=== PATIENT | female | born 1955 | race Caucasian/White ===

== ENCOUNTER 2017-01-18 15:49 | Emergency (ER) | payer SELFPAY ==
[2017-01-18 16:04] VITALS: BP 125/71
--- NOTE | 2017-01-18 16:23 | UC ---
Hand/Wrist HPI - HPI Summary HPI Summary: swollen right wrist x 1 week + injury to her right wrist at work one week ago. + swelling, not much pain , no weakness - History Of Current Complaint Chief Complaint: UCUpperExtremity Stated Complaint: RIGHT WRIST INJURY Time Seen by Provider: 01/18/17 16:09 Hx Obtained From: Patient Onset/Duration: Sudden Onset, Lasting Days - 7, Still Present Severity Initially: Moderate Severity Currently: Moderate Character Of Pain: Unable To Describe Aggravating Factor(s): Flexion Alleviating: Nothing Associated Signs And Symptoms: Positive: Swelling. Negative: Redness, Bruising , Fever, Weakness, Numbness/Tingling - Allergies/Home Medications Allergies/Adverse Reactions: Allergies Allergy/AdvReac Type Severity Reaction Status Date / Time No Known Allergies Allergy Verified 01/18/17 16:03 Home Medications: Home Medications NK [No Home Medications Reported] 01/18/17 [History Confirmed 01/18/17] PMH/Surg Hx/FS Hx/Imm Hx Previously Healthy: Yes - Surgical History Surgical History: Yes Surgery Procedure, Year, and Place: - Family History Known Family History: Negative: Diabetes - Social History Alcohol Use: Occasionally Substance Use Type: None Smoking Status (MU): Never Smoked Tobacco Review of Systems Constitutional: Negative Skin: Negative Eyes: Negative ENT: Negative Respiratory: Negative Cardiovascular: Negative All Other Systems Reviewed And Are Negative: Yes Physical Exam Triage Information Reviewed: Yes Appearance: Well-Appearing, No Pain Distress, Well-Nourished Vital Signs: Initial Vital Signs Temp 98 F 01/18/17 15:58 Pulse 74 01/18/17 15:58 Resp 18 01/18/17 15:58 BP 125/71 01/18/17 15:58 Pulse Ox 97 01/18/17 15:58 Vital Signs Reviewed: Yes Eye Exam: Normal Eyes: Positive: Conjunctiva Clear ENT: Positive: Normal ENT inspection, Hearing grossly normal, Pharynx normal Neck: Positive: Supple, Nontender, No Lymphadenopathy Respiratory: Positive: Chest non-tender, Lungs clear, Normal breath sounds Cardiovascular: Positive: RRR, No Murmur, Pulses Normal Musculoskeletal: Positive: Other: - right wirst + ganglion cyst dorsal wrist, no tenderness, good ROM on flexion and extension normal strength Skin: Positive: Other - no head lice noted Hand/Wrist Course/Dx - Differential Dx/Diagnosis Provider Diagnoses: ganglion cyst right wrist Discharge - Discharge Plan Condition: Stable Disposition: HOME Patient Education Materials: Ganglion Cysts (ED) Referrals: CARTER De La Rosa [Primary Care Provider] - Yasmin Casillas MD [Medical Doctor] - As Soon As Possible
== END 2017-01-18 16:24 | disposition home or self-care (01) ==
LOC: UCCORT 15:49
DX: M67.431 Ganglion, right wrist (principal)
CPT/HCPCS: 99202; G0463

== ENCOUNTER 2017-07-15 11:35 | Emergency (ER) | payer BC ==
[2017-07-15 14:06] VITALS: BP 134/81
--- NOTE | 2017-07-15 14:16 | UC ---
Respiratory Complaint HPI - HPI Summary HPI Summary: Pt c/o cough that began two weeks ago. Pt reports she feels OK but cough is keeping her up at night. - History of Current Complaint Chief Complaint: UCRespiratory Stated Complaint: COUGH Time Seen by Provider: 07/15/17 14:02 Hx Obtained From: Patient ?: No Onset/Duration: Gradual Onset, Lasting Weeks - 2, Still Present Timing: Intermittent Episodes Severity Initially: Mild Severity Currently: Mild Character: Cough: Nonproductive Aggravating Factors: Recumbent Position Alleviating Factors: Nothing Associated Signs And Symptoms: Positive: URI - Risk Factors Pulmonary Embolism Risk Factors: Negative Cardiac Risk Factors: Negative Pseudomonas Risk Factors: Negative Tuberculosis Risk Factors: Negative - Allergies/Home Medications Allergies/Adverse Reactions: Allergies Allergy/AdvReac Type Severity Reaction Status Date / Time No Known Allergies Allergy Verified 07/15/17 14:06 Home Medications: Home Medications Megestrol TAB* [Megace TAB*] 80 mg PO BID 07/15/17 [History Confirmed 07/15/17] PMH/Surg Hx/FS Hx/Imm Hx Previously Healthy: Yes - Surgical History Surgical History: Yes Surgery Procedure, Year, and Place: - Family History Known Family History: Negative: Diabetes - Social History Occupation: Employed Full-time Lives: With Family Alcohol Use: Occasionally Substance Use Type: None Smoking Status (MU): Never Smoked Tobacco Have You Smoked in the Last Year: No Review of Systems Constitutional: Fatigue Skin: Negative Eyes: Negative ENT: Negative Respiratory: Cough Cardiovascular: Negative Gastrointestinal: Negative Genitourinary: Negative Motor: Negative Neurovascular: Negative Musculoskeletal: Negative Neurological: Negative Psychological: Negative Is Patient Immunocompromised?: No All Other Systems Reviewed And Are Negative: Yes Physical Exam Triage Information Reviewed: Yes Appearance: Ill-Appearing Vital Signs: Initial Vital Signs Temp 98.8 F 07/15/17 13:58 Pulse 77 07/15/17 13:58 Resp 20 07/15/17 13:58 BP 134/81 07/15/17 13:58 Pulse Ox 98 07/15/17 13:58 Vital Signs Reviewed: Yes Eye Exam: Normal ENT Exam: Other ENT: Positive: Nasal congestion Dental Exam: Normal Neck exam: Normal Respiratory Exam: Normal Cardiovascular Exam: Normal Musculoskeletal Exam: Normal Neurological Exam: Normal Psychological Exam: Normal Skin Exam: Normal UC Diagnostic Evaluation - Laboratory O2 Sat by Pulse Oximetry: 98 Respiratory Course/Dx - Differential Dx/Diagnosis Differential Diagnosis/HQI/PQRI: Bronchitis, Other - uri Provider Diagnoses: URI. cough Discharge - Discharge Plan Condition: Stable Disposition: HOME Prescriptions: Benzonatate CAP* [Tessalon 100 MG CAP*] 100 mg PO Q8H PRN #30 cap PRN Reason: Cough predniSONE TAB* [Deltasone TAB*] 30 mg PO DAILY #9 tab Patient Education Materials: Cold Symptoms (ED), Acute Cough (ED) Referrals: CARTER De La Rosa [Primary Care Provider] - If Needed
== END 2017-07-15 14:27 | disposition home or self-care (01) ==
LOC: UCCORT 11:35
DX: J06.9 Acute upper respiratory infection, unspecified (principal); R05 Cough
CPT/HCPCS: 99212; G0463

== ENCOUNTER 2018-01-21 11:55 | Emergency (ER) | payer BC ==
[2018-01-21 13:20] VITALS: BP 143/74
--- NOTE | 2018-01-21 13:20 | UC ---
UC General HPI - HPI Summary HPI Summary: 62 yo female c/o progressive st, cough x 1 weeks. No rash. No sob. No cp / palpitations. No GI Issues. + recent sick contacts. Low grade temp. - History of Current Complaint Stated Complaint: COUGH,CONGESTION,ST Time Seen by Provider: 01/21/18 13:14 Hx Obtained From: Patient - Allergy/Home Medications Allergies/Adverse Reactions: Allergies Allergy/AdvReac Type Severity Reaction Status Date / Time No Known Allergies Allergy Verified 01/21/18 13:19 PMH/Surg Hx/FS Hx/Imm Hx Previously Healthy: Yes - Surgical History Surgical History: Yes Surgery Procedure, Year, and Place: - Family History Known Family History: Negative: Diabetes - Social History Occupation: Employed Full-time Alcohol Use: Occasionally Substance Use Type: None Smoking Status (MU): Never Smoked Tobacco Have You Smoked in the Last Year: No Review of Systems Constitutional: Fatigue Skin: Negative Eyes: Other - watery eyes ENT: Sore Throat, Nasal Discharge, Sinus Congestion Respiratory: Cough Cardiovascular: Negative Gastrointestinal: Negative Genitourinary: Negative Motor: Negative Neurovascular: Negative Musculoskeletal: Negative Neurological: Negative Psychological: Negative Is Patient Immunocompromised?: No All Other Systems Reviewed And Are Negative: Yes Physical Exam Triage Information Reviewed: Yes Appearance: Well-Nourished - sitting up conversing easily Vital Signs Reviewed: Yes Eye Exam: Other - perrla eomi, watery eyes, dark circles ENT: Positive: Pharyngeal erythema - no sores or exudates, TM dull, Other - nasal turb swollen Neck exam: Normal Neck: Positive: Supple, Nontender, No Lymphadenopathy Respiratory Exam: Other - BS equal, + rhonchorus cough Respiratory: Positive: No respiratory distress, No accessory muscle use Cardiovascular Exam: Normal Cardiovascular: Positive: RRR, No Murmur, Pulses Normal, Brisk Capillary Refill Abdominal Exam: Normal Abdomen Description: Positive: Nontender Musculoskeletal Exam: Normal - gait steady, moves x 4 ext's Neurological Exam: Normal - grossly nonfocal Psychological Exam: Normal - conversing easily and appropriately Skin Exam: Normal - non-diaphoretic, no visible or reported rash Course/Dx - Course Course Of Treatment: Reviewed coa / tx plan. Questions as posed answered to the best of my ability. RST neg. - Differential Dx - Multi-Symptom Provider Diagnoses: URI Discharge - Sign-Out/Discharge Documenting (check all that apply): Discharge/Admit/Transfer - Discharge Plan Condition: Stable Disposition: HOME Prescriptions: Azithromyxin MARIA ESTHER (NF) [Z-Maria Esther (Zithromax) 250 mg tabs #6] 2 tab PO .TODAY, THEN 1 DAILY #6 tab Patient Education Materials: Upper Respiratory Infection (ED) Referrals: CARTER De La Rosa [Primary Care Provider] - Additional Instructions: Follow up with your primary are physician per routine. Seek medical attention for worse or new problems in the meantime. Rapid strep test today negative. - Billing Disposition and Condition Condition: STABLE Disposition: HOME
== END 2018-01-21 14:02 | disposition home or self-care (01) ==
LOC: UCCORT 11:55
DX: J06.9 Acute upper respiratory infection, unspecified (principal)
CPT/HCPCS: 87651; 99212; G0463

== ENCOUNTER 2019-12-21 12:42 | Emergency (ER) | payer BC, OTHER ==
--- NOTE | 2019-12-21 13:31 | UC ---
Throat Pain/Nasal David HPI - HPI Summary HPI Summary: 64 y/o female presents to the urgent care c/o a red rash and with infected pimples on her nose since yesterday. Pt reports she also developed some mild cough and subjective fever last night. She states her has been exposed to people who tested positive for COVID and about 1 weeks ago she used a bathroom he used. However, he has not not developed no URI symptoms and has not been tested. She is concerned about COVID. She thinks started after wearing a new mask. She has PMHX of DM type II and denies Hx of MRSA. She states mild nasal congestion w/ mild clear PND. This morning she noticed mild serous pus drainage from the rash in her nose. Pain is 2/10 in her nose at touch. Pt denies fever today, SOB, WATSON, myalgias, chest pain, dizziness, abdominal pain, N/ V/D or itchiness. - History of Current Complaint Chief Complaint: UCRespiratory Stated Complaint: SINUS AND NECK PAIN Time Seen by Provider: 12/21/19 13:27 Hx Obtained From: Patient Onset/Duration: Gradual Onset, Lasting Days - 1 day w/ subjective fever, mild cough and nose with some infected pimples and redness, Still Present, Worse Since - today Severity: Mild Pain Intensity: 2 - nose touch Pain Scale Used: 0-10 Numeric Cough: Nonproductive Associated Signs & Symptoms: Positive: Nasal Discharge - clear, Fever - subjective fever last night, Rash - nose red rash with some superficial disccharge - Epiglottits Risk Factors Epiglottis Risk Factors: Negative - Allergies/Home Medications Allergies/Adverse Reactions: Allergies Allergy/AdvReac Type Severity Reaction Status Date / Time No Known Allergies Allergy Verified 12/21/19 12:58 Home Medications: Home Medications Cephalexin CAP* [Keflex CAP*] 500 mg PO QID #28 cap 12/21/19 [Rx] Mupirocin 2% OINT* [Bactroban 2 % Oint*] 1 applic TOPICAL BID #1 tube 12/21/19 [ Rx] metFORMIN* [Glucophage 500 MG TAB *] 1,000 mg PO BID 12/21/19 [History Confirmed 12/21/19] PMH/Surg Hx/FS Hx/Imm Hx Previously Healthy: Yes Endocrine History: Diabetes - Surgical History Surgical History: Yes Surgery Procedure, Year, and Place: . hysterectomy. lipoma removed - Family History Known Family History: Positive: Hypertension, Diabetes Family History: dyslipidemia - Social History Occupation: Unemployed Lives: With Family Alcohol Use: Occasionally Substance Use Type: None Smoking Status (MU): Never Smoked Tobacco Have You Smoked in the Last Year: No Review of Systems All Other Systems Reviewed And Are Negative: Yes Constitutional: Positive: Fever - subjective fever last night Skin: Positive: Rash - nose w/ red rash, some yellowish skin drainage since yesterday Eyes: Positive: Negative ENT: Positive: Nasal Discharge - clear, Sinus Congestion - mild, Other Respiratory: Positive: Cough - mild. Negative: Shortness Of Breath, Other Cardiovascular: Positive: Negative Gastrointestinal: Positive: Negative Genitourinary: Positive: Negative Motor: Positive: Negative Neurovascular: Positive: Negative Musculoskeletal: Positive: Negative Neurological/Mental Status: Positive: Negative Psychological: Positive: Negative Is Patient Immunocompromised?: No Physical Exam - Summary Physical Exam Summary: VITAL SIGNS: Reviewed. GENERAL: Patient is a well developed and nourished obese male who is sitting comfortably in the examining table. Patient is not in any acute respiratory distress. HEAD AND FACE: No signs of trauma. No ecchymosis, hematomas or skull depressions. No sinus tenderness. EYES: PERRLA, EOMI x 2, No injected conjunctiva, no nystagmus. No photophobia. EARS: Hearing grossly intact. Ear canals and tympanic membranes are within normal limits. MOUTH: Positive pharynx with mild erythema, no exudates, No B/L tonsillar enlargement , no exudate. Uvula in midline. edematous nasal mucosa w/ clear nasal discharge, clear PND NECK: Supple, trachea is midline, Positive anterior cervical lymphadenopathy, no JVD, no carotid bruit, no c-spine tenderness, neck with full ROM. No meningeal signs, no Kernig's or brudzinskis signs. CHEST: Symmetric, no tenderness at palpation LUNGS: Clear to auscultation bilaterally. No wheezing or crackles. CVS: Regular rate and rhythm, S1 and S2 present, no murmurs or gallops appreciated. ABDOMEN: Soft, non-tender. No signs of distention. No rebound no guarding, and no masses palpated. Bowel sounds are normal. EXTREMITIES: FROM in all major joints, no edema, no cyanosis or clubbing. NEURO: Alert and oriented x 3. No acute neurological deficits. Pt follows commands. SKIN: Positive: Positive external nose over the bridge with erythematous patch w/ indistinct borders, warm and mild tenderness to palpation, mild serous yellowish drainage drainage observed. pulses WNL, capillary refill brisk, sensation WNL. Triage Information Reviewed: Yes Throat Pain/Nasal Course/Dx - Course Course Of Treatment: 64 y/o female presents to the urgent care c/o a red rash and with infected pimples on her nose since yesterday. Pt reports she also developed some mild cough and subjective fever last night. She states her has been exposed to people who tested positive for COVID and about 1 weeks ago she used a bathroom he used. However, he has not not developed no URI symptoms and has not been tested. She is concerned about COVID. She thinks started after wearing a new mask. She has PMHX of DM type II and denies Hx of MRSA. She states mild nasal congestion w/ mild clear PND. This morning she noticed mild serous pus drainage from the rash in her nose. Pain is 2/10 in her nose at touch. Pt denies fever today, SOB, WATSON, myalgias, chest pain, dizziness, abdominal pain, N/ V/D or itchiness. Hx obtained. Pt is hemodynamically stable, A&Ox3, VS: WNL. Pt w/ URI and cellulitis on her nose s/p wearing a new mask. Rapid strep ordered, result: negative. Influenza A&B: negative. Wound culture taken from nose discharge and sent to lab to r/o MRSA. Pt will be notified of any abnormal result for further management. COVID19 testing ordered and collected with PPE precautions by me. Pt advised results will have a turn over of 3-6 days. Pt advised her to quarantine and isolate from family members while waiting for the results and she will be contacted w/ results. Pt Rx Keflex PO and BActroban topical oint as directed below. Pt advised to take Tylenol to alleviate pain and swelling symptoms. Increase hydration and boost his immune system by eating well, taking Vitamin C and avoiding strenuous exercise. Pt strongly recommended if worsening symptoms w/ fever despite taking antibiotics for 48 hrs to go inmediately to the ER for further management. Otherwise to f/u with her PCP in 3 days to make sure symptoms are improving. Pt's BP is elevated today and advised to decrease salt in diet, monitor BP and f/u with PCP if BP continues to be elevated for further management. D/C instructions explained. Pt understood and agreed w/ plan of care. - Differential Dx/Diagnosis Differential Diagnosis/HQI/PQRI: Influenza, Pharyngitis, Sinusitis, URI, Other - cellulitis, abscess Provider Diagnosis: Upper respiratory infection, Cellulitis of nose, external, Elevated BP without diagnosis of hypertension Discharge ED - Sign-Out/Discharge Documenting (check all that apply): Patient Departure - D/C home All imaging exams completed and their final reports reviewed: No Studies - Discharge Plan Condition: Stable Disposition: HOME Prescriptions: Cephalexin CAP* [Keflex CAP*] 500 mg PO QID #28 cap Mupirocin 2% OINT* [Bactroban 2 % Oint*] 1 applic TOPICAL BID #1 tube Patient Education Materials: Cellulitis (ED), Upper Respiratory Infection (ED) Forms: COVID-19 Tested & Isolation Referrals: Marian Kennedy [Primary Care Provider] - 3 Days Additional Instructions: 1-Please take full course of Antibiotic as directed for your nose cellulitis. Please apply Bactroban oisn 2- If redness and swelling doubles in size after 48 hrs of taking antibiotic and fever develops please go to the ER immediately. Otherwise f/u with your PCP in 3 days to make sure symptoms and improving 3-Please wear a cotton mask to avoid in contact dermatitis as explained. 4- Rapid influenza A&B: negative, RApid strep: negative, Oropharyngeal swabs have been sent to the lab to r/o COVID 19, you will be notified of any abnormality as soon as we get the results. 5-Please Take Tylenol PO q6-8hrs prn as instructed after meals to alleviate fever, or myalgias. Take Vitamin C to boost your immune system. Increase fluid intake, eat well, rest and avoid strenuous exercise. 6- Please isolate at home until you get the results. You will be notified of the results. 7- Your BP is elevated today and advised to decrease salt in diet, monitor BP and f/u with PCP for further management. Isolation - important Facts to Know after being Tested Please note that after being tested, you must go straight home, since you are now on mandatory home isolation as directed by the Health Department. Your test is expected to return in about one week and you will be contacted with the result of your test. Our office will contact you daily on behalf of the Health Department to ensure that you are in compliance with mandatory home isolation. What does mandatory isolation mean? You must go straight home without any stops on the way. You must stay from all others in your home (even children - for their safety), If possible, use a bathroom that only you use. If this is not possible, it must be disinfected after you use it, or you may use a commode in your bedroom. Sleep in a separate bedroom and have all meals etc. brought to your bedroom door. Visitors or non-household members are not allowed to enter your home for the duration of the isolation period. You cannot go to work, school, public places, or social gatherings. You are not to leave home for any purpose until you receive negative results and your status permits it and are counseled by your doctor. The following advice may be of help: Household Members: Household members are to remain from you inside your home and will not be allowed to use your bedroom or bathroom. Visitors: Visitors or non-household members are not allowed to enter your home for the duration of the isolation period. If you develop new symptoms or need medical treatment: call your primary care practitioner for direction first. Please do not go to the ER or Urgent Care without speaking to your doctor. In case of emergency call 911. You must state that you are under isolation for COVID-19 testing. - Billing Disposition and Condition Condition: STABLE Disposition: Home - Attestation Statements Provider Attestation: This patient was not seen by me. I was available for consult. Chart reviewed. RUDY
[2019-12-21 14:03] VITALS: BP 143/72
[2019-12-21 14:20] LABS: Influenza A Molecular Negative (Negative); Influenza B Molecular Negative (Negative)
== END 2019-12-21 15:00 | disposition home or self-care (01) ==
LOC: UCCORT 12:42
DX: J06.9 Acute upper respiratory infection, unspecified (principal); J34.0 Abscess, furuncle and carbuncle of nose; R03.0 Elevated blood-pressure reading, without diagnosis of hypertension; Z20.828 Contact with and (suspected) exposure to other viral communicable diseases; E11.9 Type 2 diabetes mellitus without complications; Z79.84 Long term (current) use of oral hypoglycemic drugs; Z86.14 Personal history of Methicillin resistant Staphylococcus aureus infection
CPT/HCPCS: 87070; 87077; 87205; 87635; 87651; 99212; G0463; U0003